=== PATIENT | female | born 1965 | race Caucasian/White ===

== ENCOUNTER → 2018-12-25 | Outpatient (CLI) | payer MEDICAID ==
[~2018-12-25] MED LIST: None at this Time
[2018-12-25 15:28] LABS: BASOPHILS # (AUTO) 0.03 x10^3/uL (0-0.1); BASOPHILS % (AUTO) 0 % (0-1); EOSINOPHILS # (AUTO) 0.22 x10^3/uL (0-0.4); EOSINOPHILS % (AUTO) 2 % (1-7); LYMPHOCYTES # (AUTO) 2.41 x10^3/uL (1-3.4); LYMPHOCYTES % (AUTO) 26 % (22-44); MD NO; MEAN CORPUSCULAR HEMOGLOBIN 30.1 pg (27.0-34.8); MEAN CORPUSCULAR HGB CONC 33.6 g/dL (32.4-35.8); MEAN CORPUSCULAR VOLUME 89.8 fL (80-100); MEAN PLATELET VOLUME 8.3 fL (7.4-10.4); MONOCYTES # (AUTO) 0.51 x10^3/uL (0.2-0.8); MONOCYTES % (AUTO) 6 % (2-9); NEUTROPHILS # (AUTO) 6.19 x10^3/uL (1.8-6.8); NEUTROPHILS % (AUTO) 66 % (42-75); PLATELET COUNT 288 x10^3/uL (130-400); RED BLOOD COUNT 4.96 x10^6/uL (3.82-5.3); RED CELL DISTRIBUTION WIDTH 12.8 % (9.6-15.2)
[2018-12-25 15:30] LABS: ANION GAP 6 mmol/L (5-15); CALCIUM 9.3 mg/dL (8.5-10.1); CHLORIDE 106 mmol/L (98-107); CREATININE 0.82 mg/dL (0.55-1.02)
[2018-12-25 15:45] LABS: INTERNATIONAL NORMALIZED RATIO 0.92 (0.93-1.1); PROTHROMBIN TIME 9.7 Seconds (9.6-11.5)
== END | disposition home or self-care (01) ==
LOC: STAR 14:28
PROVIDERS: ATTEND Neurological Surgery
DX: Z01.818 Encounter for other preprocedural examination (principal); M50.021 Cervical disc disorder at C4-C5 level with myelopathy
CPT/HCPCS: 36415; 71046; 80048; 85025; 85610; 85730; 93005

== ENCOUNTER 2019-01-01 05:38 | Inpatient (IN) | payer MEDICAID ==
[~2019-01-01] VITALS: Ht 172.7 cm; Wt 101.0 kg
[2019-01-01] MEDS ORDERED: LACTATED RINGERS 1,000 ML IV SCH (06:08)
[2019-01-01 06:11] VITALS: BP 177/99
[2019-01-01] MEDS ORDERED: BUPIVACAINE/EPI 0.5% 1:200K ONE (06:24)
[2019-01-01] MEDS ORDERED: THROMBIN 20,000 UNIT VIAL TP ONE (06:24)
[2019-01-01] MEDS ORDERED: BACITRACIN 50,000 UNIT ONE (06:24)
[2019-01-01] MEDS ORDERED: MICROFIBRILLAR COLLAGEN 1 GM TP ONE (06:26)
[2019-01-01] MEDS ORDERED: ACETAMINOPHEN 500 MG TABLET PO ONE (07:00)
[2019-01-01] MEDS ORDERED: ONDANSETRON ODT 8 MG PO ONE (07:00)
[2019-01-01] MEDS ORDERED: GABAPENTIN 300 MG CAPSULE PO ONE (07:00)
[2019-01-01] MEDS ORDERED: PROPOFOL 50 ML ONE ×3 (07:06→08:53)
[2019-01-01] MEDS ORDERED: EPHEDRINE 50 MG/ML, 1ML ONE (07:07)
[2019-01-01] MEDS ORDERED: PROPOFOL 10 MG/ML, 20ML ONE (07:07)
[2019-01-01] MEDS ORDERED: MIDAZOLAM 1 MG/ML, 2ML ONE (07:07)
[2019-01-01] MEDS ORDERED: FENTANYL PF 250 MCG/5ML ONE (07:07)
[2019-01-01] MEDS ORDERED: SODIUM CHLORIDE 0.9% PF 10ML ONE (07:07)
[2019-01-01] MEDS ORDERED: PHENYLEPHRINE 10 MG/ML ONE (07:07)
[2019-01-01] MEDS ORDERED: SUCCINYLCHOLINE 20 MG/ML, 10ML ONE (07:07)
[2019-01-01] MEDS ORDERED: CEFAZOLIN 1,000 MG ONE ×2 (07:07)
[2019-01-01] MEDS ORDERED: LIDOCAINE-MPF 2% ,5ML ONE (07:07)
[2019-01-01] MEDS ORDERED: DEXAMETHASONE 4 MG/ML, 1ML ONE ×2 (07:08)
[2019-01-01] MEDS ORDERED: LORazepam 2 MG/ML, 1ML IVPush PRN (07:30)
[2019-01-01] MEDS ORDERED: OXYcodone 5 MG/5 ML ORAL.SOL UDC PO PRN (07:30)
[2019-01-01] MEDS ORDERED: hydrALAzine 20 MG/ML, 1ML IV PRN (07:30)
[2019-01-01] MEDS ORDERED: LABETALOL 5MG/ML, 20ML IV PRN (07:30)
[2019-01-01] MEDS ORDERED: HYDROmorphone 2 MG/ML, 1ML IVPush PRN (07:30)
[2019-01-01] MEDS ORDERED: MEPERIDINE/PF 25MG/0.5ML IVPush PRN (07:30)
[2019-01-01] MEDS ORDERED: ALBUTEROL SULFATE 2.5 MG/3 ML NPPB PRN (07:30)
[2019-01-01] MEDS ORDERED: PROMETHAZINE 25 MG/ML, 1ML IV PRN (07:30)
[2019-01-01] MEDS ORDERED: OXYcodone 5 MG/5 ML ORAL.SOL UDC ONE (09:48)
[2019-01-01] MEDS ORDERED: FENTANYL PF 100 MCG/2ML ONE (09:52)
[2019-01-01] MEDS: FENTANYL PF 100 MCG/2ML IV PRN ×2 (09:55→10:30)
[2019-01-01] MEDS ORDERED: METHOCARBAMOL 1,000 MG in DEXTROSE 5% 100 ML IV ONE (10:00)
[2019-01-01] MEDS ORDERED: BISACODYL 10 MG SUPP PR PRN (11:30)
[2019-01-01] MEDS ORDERED: morphine SULFATE 10 MG/ML, 1ML IV PRN ×2 (11:30→14:09)
[2019-01-01] MEDS ORDERED: PROMETHAZINE 25 MG/ML, 1ML IM PRN (11:30)
[2019-01-01] MEDS ORDERED: OXYcodone/APAP 5/325MG TABLET PO PRN (11:30)
[2019-01-01] MEDS ORDERED: MAGNESIUM HYDROXIDE 8%, 30ML UDC PO PRN (11:30)
[2019-01-01] MEDS ORDERED: DIPHENHYDRAMINE 50 MG/ML, 1ML IVPush PRN (11:30)
[2019-01-01] MEDS ORDERED: DIPHENHYDRAMINE 50 MG CAPSULE PO PRN (11:30)
[2019-01-01] MEDS ORDERED: DIPHENHYDRAMINE 50 MG/ML, 1ML IM PRN (11:30)
[2019-01-01] MEDS ORDERED: ONDANSETRON 2MG/ML, 2ML IV PRN (11:30)
[2019-01-01] MEDS ORDERED: HYDROcodone/APAP 5/325 TABLET PO PRN (11:30)
[2019-01-01] MEDS: NS + 20MEQ KCL 1,000 ML IV SCH ×2 (13:20→22:03)
[2019-01-01] MEDS: DEXAMETHASONE 4 MG/ML, 1ML IV SCH ×2 (14:01→20:02)
[2019-01-01] MEDS: CEFAZOLIN PMX 2GM/50ML 50 ML IVPB SCH ×2 (15:30→23:23)
[2019-01-01 16:28] VITALS: BP 130/83
[2019-01-01] MEDS: METHOCARBAMOL 750 MG TABLET PO SCH (18:10)
[2019-01-01 19:48] VITALS: BP 182/117
[2019-01-01] MEDS: HYDROcodone/APAP 10/325 MG TABLET PO PRN (20:04)
[2019-01-01 20:31] VITALS: BP 143/87
[2019-01-02 00:09] VITALS: BP 143/88
[2019-01-02] MEDS: METHOCARBAMOL 750 MG TABLET PO SCH ×2 (01:50→10:08)
[2019-01-02] MEDS: DEXAMETHASONE 4 MG/ML, 1ML IV SCH ×2 (01:51→08:01)
[2019-01-02] MEDS: HYDROcodone/APAP 10/325 MG TABLET PO PRN ×2 (03:13→08:02)
[2019-01-02 04:43] VITALS: BP 146/70
[2019-01-02 07:33] VITALS: BP 137/70
[2019-01-02] MEDS ORDERED: SENNA/DOCUSATE TABLET PO SCH (09:00)
[2019-01-02] MEDS ORDERED: METH750T87 PO (09:25)
[2019-01-02] MEDS ORDERED: HYDR-3307 PO (09:25)
[2019-01-02] MEDS ORDERED: DOCU-131 PO (09:26)
[2019-01-02] MEDS ORDERED: ENOXAPARIN 30 MG/0.3 ML SQ SCH (10:00)
[2019-01-02] MEDS: NS + 20MEQ KCL 1,000 ML IV SCH (10:19)
== END 2019-01-02 10:48 | disposition home or self-care (01) | DRG 473 ==
LOC: ORIP 05:38 → 4NOR 10:58 → DCLOUNGE 01-02 10:41
PROVIDERS: ADMIT Neurological Surgery; ATTEND Neurological Surgery
PROC: 0RG10A0 Fusion of Cervical Vertebral Joint with Interbody Fusion Device, Anterior Approach, Anterior Column, Open Approach (ICD-10-PCS; 2019-01-01)
PROC: 4A11X4G Monitoring of Peripheral Nervous Electrical Activity, Intraoperative, External Approach (ICD-10-PCS; 2019-01-01)
PROC: 0RB30ZZ Excision of Cervical Vertebral Disc, Open Approach (ICD-10-PCS; principal; 2019-01-01 07:30)
DX: M50.021 Cervical disc disorder at C4-C5 level with myelopathy (principal); Z87.891 Personal history of nicotine dependence; Z85.89 Personal history of malignant neoplasm of other organs and systems
CPT/HCPCS: 72040; J3490; C1713; C1776; G0378; J0690; J1100; J1650; J2250; J2405; J2704; J3010; J3480; Q0162; C1762; J0330; J2370; J2800; J7120

== ENCOUNTER 2019-01-06 16:07 | Emergency (ER) | payer MEDICAID ==
[~2019-01-06] VITALS: Ht 172.7 cm; Wt 95.7 kg
[~2019-01-06 16:07] MED LIST changes: +DOCU-131 PO; +HYDR-3307 PO; +METH750T87 PO
[2019-01-06 17:06] VITALS: BP 136/81
== END 2019-01-06 18:40 | disposition home or self-care (01) ==
LOC: ED 18:00
DX: S11.91XA Laceration without foreign body of unspecified part of neck, initial encounter (principal); X58.XXXA Exposure to other specified factors, initial encounter; Y93.89 Activity, other specified; Y92.89 Other specified places as the place of occurrence of the external cause; Y99.8 Other external cause status
CPT/HCPCS: 12002